=== PATIENT | male | born 1970 | race Caucasian/White ===

== ENCOUNTER 2018-07-27 00:35 | Inpatient (IN) | payer MEDICAID ==
[~2018-07-27] VITALS: Ht 182.9 cm; Wt 101.2 kg
[2018-07-27] VITALS (7 sets, daily range): BP systolic 108–166; BP diastolic 57–96; BMI 33.5
[2018-07-27] MEDS ORDERED: LOSARTAN PO (00:46)
[2018-07-27] MEDS ORDERED: FERROUS SULFATE (00:47)
[2018-07-27] MEDS ORDERED: LASIX40 MG PO (00:47)
[2018-07-27] MEDS ORDERED: LEVEMIR IN100 UNITS/ SQ (00:48)
[2018-07-27] MEDS ORDERED: COREG12.5 MG PO ×2 (00:48→00:49)
[2018-07-27] MEDS ORDERED: FLOMAX0.4 MG PO (00:48)
[2018-07-27] MEDS ORDERED: GABAPENTIN100 MG PO (00:48)
[2018-07-27] MEDS ORDERED: LISINOPRIL20 MG PO (00:49)
[2018-07-27] MEDS ORDERED: K-DUR20 MEQ PO (00:50)
[2018-07-27] MEDS ORDERED: NITROQUICK0.4 MG SL (00:50)
[2018-07-27] MEDS ORDERED: ZOFRAN ODT4 MG/UDTAB PO (00:52)
[2018-07-27] MEDS ORDERED: COREG25 MG PO (00:52)
[2018-07-27] MEDS ORDERED: CARAFATE1 G PO (00:52)
[2018-07-27] MEDS ORDERED: PHENERGAN25 M1 PO (00:53)
[2018-07-27] MEDS ORDERED: MAG-OX 400 MG400 MG PO (00:53)
[2018-07-27] MEDS ORDERED: ZITHROMAX250 MG PO (00:54)
[2018-07-27] MEDS ORDERED: ALBUTEROL SULF8.5 GM INH (00:54)
[2018-07-27] MEDS ORDERED: OMNICEF300 MG PO (00:54)
[2018-07-27] MEDS ORDERED: HYDROCODON-ACE1 EAC7 PO (00:55)
[2018-07-27] MEDS ORDERED: DECADRON4 MG PO (00:55)
[2018-07-27 01:03] LABS: HEMATOCRIT 21.7 % (42.0-54.0); MCHC 34.1 g/dL (31.0-37.0); MCV 85.1 fL (80.0-100.0); PLATELET COUNT 113 10x3/uL (130-400); RBC 2.55 10x6/uL (4.20-6.10); RDW 14.6 % (11.5-14.5); WBC 2.1 10x3/uL (4.8-10.8)
[2018-07-27 01:05] LABS: HEMOGLOBIN 7.4 g/dL (13.5-17.5)
[2018-07-27 01:22] LABS: INR 1.2 (0.85-1.17); PROTIME 14.7 SECONDS (11.6-15.0)
[2018-07-27 01:31] LABS: ALBUMIN 1.5 g/dL (3.4-5.0); ANION GAP 12.8 mmol/L (8-16); BILIRUBIN - TOTAL 0.1 mg/dL (0.2-1.3); CALCIUM 7.5 mg/dL (8.5-10.1); CARBON DIOXIDE 25.1 mmol/L (21.0-32.0); POTASSIUM - SERUM 3.9 mmol/L (3.5-5.1); PROTEIN - SERUM 5.5 g/dL (6.4-8.2)
[2018-07-27 01:35] LABS: TROPONIN-I 0.289 ng/mL (0.000-0.060)
[2018-07-27 01:40] LABS: EOSINOPHILS 2 % (0-7); LYMPHOCYTES 14 % (15-50); MONOCYTES 8 % (2-11); NEUTROPHILS 76 % (40-80); PLATELET ESTIMATE DECREASED
--- NOTE | 2018-07-27 02:49 | NUR ---
REPORT GIVEN TO ERIN MOON
--- NOTE | 2018-07-27 04:29 | NUR ---
ARRIVED TO FLOOR AT 0335 ON STRETCHER. STAFF UNABLE TO AROUSE HIM AND GET HIM TO SELF TRANSFER TO BED. THIS NURSE ABLE TO AROUSE HIM AND HE DID MOVE OVER TO THE BED. ALERT AND ORIENTED UP AD BOYD TO B/R. INFUSING PRBC AT THIS TIME. SETTING FROM ER 250ML/HR. REDUCED TO 125/CC HR. TO PREVENT FLUID OVERLOAD. IV TO RIGHT FA WITH DSG INTACT. NO REDNESS OR SWELLING TO SITE. O2@ 3 LITERS PER N/C. IV TO RIGHT INDEX FINGER SL.. LEFT ARM RESERVED D/T FISTULA NEAR WRIST. AVF HAS NO BRUIT OR TRILL. PT STATES IT NEVER HAS WORKED AND THEY PUT IT IN ABOUT 3 MOS AGO. ORIENTED X4. ABLE TO ANSWER SOME QUESTIONS. AID AQUIRED V/S'S AND WT.. WHEN THIS NURSE RETURNED TO ROOM UNABLE TO KEEP HIM AWAKE AND DOES NOT ANSWER QUESTIONS AT THIS TIME. WILL ATTEMPT TO GET HISTORY AND MEDS COMPLETED AFTER HE HAS HAD SOME REST. PHYSICAL ASSESSMENT COMPLETE. WILL CHECK FSBS D/T REPORTS OF OVER 400 AND 10 UNITS OF INSULIN GIVEN IN ER.
--- NOTE | 2018-07-27 04:59 | NUR ---
CONT TO BE LETHARGIC. FSBS 304 AT THIS TIME.
--- NOTE | 2018-07-27 07:29 | NUR ---
PT ASLEEP, DID NOT ROUSE TO MY ATTEMPTS TO WAKE, THIS IS CONSISTANT WITH HIS DOCUMENT BEHAVIOR THUS FAR. BLOOD DONE AND ISCONNECTED. V/S RECORDED. CL IN REACH, SRX2.
--- NOTE | 2018-07-27 08:50 | NUR ---
PT AWAKE AND ORIENTED WITH 0 ISSUES. NO COMPLAINTS OR CONCERNS AT THIS TIME. CL IN REACH, SRX2. REQUESTS A SHOWER AT [facility] TODAY.
[2018-07-27 10:29] LABS: ANION GAP 12.6 mmol/L (8-16); CALCIUM 7.8 mg/dL (8.5-10.1); CARBON DIOXIDE 24.3 mmol/L (21.0-32.0); POTASSIUM - SERUM 3.9 mmol/L (3.5-5.1)
[2018-07-27 12:47] LABS: BASOPHILS 0.9 % (0-2); EOSINOPHILS 0.6 % (0-7); HEMATOCRIT 24.7 % (42.0-54.0); HEMOGLOBIN 8.4 g/dL (13.5-17.5); IMMATURE GRANULOCYTES 2.7 % (0-5); MCH 28.6 pg (26.0-34.0); MEAN PLATELET VOLUME 9.6 fL (7.4-10.4); MONOCYTES 10.2 % (2-11); NEUTROPHILS 64.6 % (40-80); PLATELET COUNT 132 10x3/uL (130-400); RBC 2.94 10x6/uL (4.20-6.10); RDW 14.3 % (11.5-14.5)
[2018-07-27 12:50] LABS: WBC 3.3 10x3/uL (4.8-10.8)
--- NOTE | 2018-07-27 13:35 | NUR ---
I have reviewed this patient and I concur with the Shift Assessment completed by the Licensed Practical Nurse today this shift.
[2018-07-27 14:09] LABS: INR 1.17 (0.85-1.17); PROTIME 14.4 SECONDS (11.6-15.0)
--- NOTE | 2018-07-27 16:14 | NUR ---
PT HAS BEEN AWAKE AND ORIENTED ALL DAY. NO SIGNS/SYMPTOMS OF LETHARGY. JUST A LITTLE HARD TO WAKE UP BUT THAT IS APPARENTLY HIS BASELINE. NO COMPLAINTS OR CONCERNS OTHER THAN HE DOESN'T LIKE THE FOOD. CL IN REACH, SRX2.
--- NOTE | 2018-07-27 19:10 | NUR ---
ALERT/AWAKE ORIENTED X 4. WATCHING TV. DENIES PAIN OR ANY NEEDS. HAS CALL LIGHT IN REACH. NSG ASSESSMENTS DONE PER NSG FLOWCHART. REQUESTED DOOR LEFT OPENED.
--- NOTE | 2018-07-27 19:15 | NUR ---
ALERT/AWAKE ORIENTED X4. AMBULATING IN ROOM. DENIES PAIN OR ANY NEEDS. IV IN RT FA INTACT SL. TELEMETRY SHOWS 72 SR. L ARM FISTULA NOTED WITH A POSITIVE BRUIT/THRILL. REQUESTED DOOR CLOSED.
--- NOTE | 2018-07-27 21:10 | NUR ---
RETURNING TO BED FROM BATHROOM. STATED HE HAD A SHOWER. ADMIN SCHED MEDS AND LEVEMIR INSULIN 15 UNITS FOR BS 224. REATTACHED TELEMETRY LEADS.
--- NOTE | 2018-07-27 21:10 | NUR ---
ADMIN SCHED MED. DENIES ANY NEEDS OR DISCOMFORTS. HAS CL IN REACH.
[2018-07-28 00:02] VITALS: BP 120/56
--- NOTE | 2018-07-28 01:14 | NUR ---
ADMIN NORCO 5MG PO PER REQUEST FOR C/O BACK PAIN LEVEL 8 ON NUMBER SCALE 0-10. HE IS NPO PER DAYSHIFT NURSE INSTRUCTION, BUT CAN NOT FIND ORDER FOR IT. TOLD PATIENT IT MAY BE FOR THE CARDIOLOGY CONSULT.
--- NOTE | 2018-07-28 04:10 | NUR ---
SENIOR PHP WEB DEVELOPER LEAVING ROOM. FLUSHED IV'S. REQUESTED LIGHTS OFF AND DOOR CLOSED TO SLEEP.
[2018-07-28 04:46] LABS: ANION GAP 12.3 mmol/L (8-16); CALCIUM 7.7 mg/dL (8.5-10.1); CARBON DIOXIDE 25.5 mmol/L (21.0-32.0); CREATININE - SERUM 5.2 mg/dL (0.6-1.3); HEMATOCRIT 24.4 % (42.0-54.0); HEMOGLOBIN 8.6 g/dL (13.5-17.5); LYMPHOCYTES 33.6 % (15-50); MCH 30.1 pg (26.0-34.0); MCHC 35.2 g/dL (31.0-37.0); MCV 85.3 fL (80.0-100.0); MEAN PLATELET VOLUME 9.6 fL (7.4-10.4); NEUTROPHILS 53.4 % (40-80); PLATELET COUNT 145 10x3/uL (130-400); POTASSIUM - SERUM 3.8 mmol/L (3.5-5.1); RBC 2.86 10x6/uL (4.20-6.10); RDW 14.8 % (11.5-14.5); WBC 2.5 10x3/uL (4.8-10.8)
--- NOTE | 2018-07-28 07:20 | NUR ---
ROUNDING DONE WITH PATIENT BEING NPO UNTIL SEEN PER CARDIOLOGY. NO HEART MONITOR ON HIM. ON 2L PER NC. RIGHT FA AND RIGHT INDEX FINGER PIV SEEN WITH SALINE LOCK. LEFT AVF WITH NO BRUIT AND THRILL. ON EP, K+ IS 3.8. DENIES ANY NEEDS AT THIS TIME BUT TO SEE DOCTOR.
[2018-07-28 07:48] VITALS: BP 127/71
--- NOTE | 2018-07-28 08:21 | NUR ---
ELENA LOPEZ APN IN TO SEE PATIENT AND STATES THAT HE CAN EAT. COMPUTER IS DOWN IN ROOM AND I CALLED KEN IN IT.
--- NOTE | 2018-07-28 09:14 | NUR ---
PATIENT IS GIVEN URINAL AND INSTRCUTED IN NEEDING URINE SAMPLE
[2018-07-28] MEDS ORDERED: NOVOLOG100 UNIT/1 SC (10:23)
[2018-07-28 10:38] VITALS: BMI 33.3
--- NOTE | 2018-07-28 10:53 | NUR ---
SISTER TO CALL AND ASK QUESTIONS ABOUT PATIENT'S KIDNEY FUNCTION AND CONCERNS THAT IT IS GETTING WORSE. I READ HER DR IRVIN'S NOTES FROM TODAY. SHE STILL HAS MORE CONCERNS AND I TOLD HER THAT MAYBE SHE NEEDED TO CONTACT DR IRVIN AND ASK HIM MORE DIRECT QUESTIONS. I GAVE HER HIS OFFICE NUMBER AND SHE THANKED ME.
[2018-07-28 11:05] LABS: APPEARANCE CLEAR (CLEAR); COLOR STRAW (YELLOW); SPECIFIC GRAVITY 1.015 (1.005-1.020)
[2018-07-28 11:08] LABS: BILIRUBIN NEGATIVE (NEGATIVE); GLUCOSE 250 mg/dL (NEGATIVE); KETONE NEGATIVE (NEGATIVE); NITRITE NEGATIVE (NEGATIVE); PROTEIN 3+ mg/dL (NEGATIVE); UROBILINOGEN NORMAL (NORMAL)
[2018-07-28 11:09] LABS: BACTERIA FEW /hpf (NONE SEEN); EPITHELIAL CELLS NSEEN /hpf (0-5); RED CELLS - URINE 0-5 /hpf (0-5); WHITE CELLS - URINE 0-5 /hpf (0-5)
[2018-07-28 11:16] LABS: UDS - AMPHET NEGATIVE QUAL (NEGATIVE); UDS - BARB NEGATIVE QUAL (NEGATIVE); UDS - BENZO NEGATIVE QUAL (NEGATIVE); UDS - COCAINE NEGATIVE QUAL (NEGATIVE); UDS - OPIATE POSITIVE QUAL (NEGATIVE); UDS - PCP NEGATIVE QUAL (NEGATIVE); UDS - THC NEGATIVE QUAL (NEGATIVE)
[2018-07-28 11:20] VITALS: BP 130/76
--- NOTE | 2018-07-28 11:45 | NUR ---
URINE SENT TO LAB ORDERED.
[2018-07-28 14:41] VITALS: BP 132/79
--- NOTE | 2018-07-28 15:19 | NUR ---
RESTING, WATCHING TV. DENIES ANY NEEDS AT THIS TIME.
--- NOTE | 2018-07-28 15:55 | NUR ---
POC GLUCOSE IS 130, NO INSULIN REQUIRED WITH SLIDING SCALE.
--- NOTE | 2018-07-28 19:25 | NUR ---
SITTING ON SIDE OF BED. ALERT/ORIENTED X4. RR 20 EVEN U/L ON 02 AT 2L/NC. IV'S IN R FA AND R INDEX FINGER INTACT SL. REQUESTED SOME JELLO. BED IS LOW, CALL LIGHT IN REACH.
[2018-07-28 21:48] VITALS: BP 110/65
[2018-07-29 05:49] LABS: HEMATOCRIT 24.2 % (42.0-54.0); HEMOGLOBIN 8.2 g/dL (13.5-17.5); MCH 28.9 pg (26.0-34.0); MCHC 33.9 g/dL (31.0-37.0); MCV 85.2 fL (80.0-100.0); MEAN PLATELET VOLUME 9.9 fL (7.4-10.4); PLATELET COUNT 164 10x3/uL (130-400); RBC 2.84 10x6/uL (4.20-6.10); RDW 14.8 % (11.5-14.5); WBC 2.7 10x3/uL (4.8-10.8)
[2018-07-29 05:55] VITALS: BP 155/96
[2018-07-29 06:25] LABS: ANION GAP 12.4 mmol/L (8-16); CALCIUM 7.6 mg/dL (8.5-10.1); CARBON DIOXIDE 25.4 mmol/L (21.0-32.0); POTASSIUM - SERUM 3.8 mmol/L (3.5-5.1)
--- NOTE | 2018-07-29 07:31 | NUR ---
ROUNDING DONE WITH PATIENT BEING IN THE SHOWER AT THIS TIME. COMPLETE BED LINEN CHANGE DONE.
[2018-07-29 08:07] VITALS: BP 162/97
[2018-07-29 10:19] LABS: BASOPHILS 1 % (0-2); EOSINOPHILS 8 % (0-7); HYPOCHROMASIA OCC; LYMPHOCYTES 22 % (15-50); MONOCYTES 15 % (2-11); NEUTROPHILS 54 % (40-80); PLATELET ESTIMATE NORMAL
[2018-07-29 11:25] VITALS: BP 125/67
[2018-07-29 14:22] VITALS: Ht 182.9 cm; Wt 101.2 kg
--- NOTE | 2018-07-29 14:30 | NUR ---
ALEJANDRO (GLENROY) TO CALL AND ASK HOW PATIENT IS DOING. PER PATIENT, I AM ALLOWED TO TALK TO HER. I LET HER KNOW THAT A GENERAL SURGERON HAS BEEN CONSULTED FOR AVF PLACEMENT.
--- NOTE | 2018-07-29 14:34 | NUR ---
JIM LEONARDO APN HERE TO SEE PATIENT.
[2018-07-29 15:19] VITALS: BP 134/73
--- NOTE | 2018-07-29 16:33 | NUR ---
PATIENT HAS NOT VOIDED IN URINAL SINCE ASKING HIM TO BEFORE LUNCH. HE HAS NOT VOIDED. WILL CONTINUE TO FOLLOW.
--- NOTE | 2018-07-29 17:01 | NUR ---
1659-PERMITS SIGNED FOR SURGERY FOR TOMORROW. PATIENT IS MADE AWARE OF NPO PAST MIDNIGHT STATUS.
--- NOTE | 2018-07-29 17:45 | NUR ---
VOIDED 800 CC TO URINAL.
--- NOTE | 2018-07-29 20:11 | NUR ---
RECIEVED BEDSIDE REPORT. ROUNDS COMPLETED. VSS, AAOX3. APPEARS DROWSY. NO S/S OF RR DISTRESS. PT NPO FOR POSSIBLE ARTERIOVENOUS FISTULA OR ARTERIOVENOUS GRAFT PLACEMENT TOMORROW. CONSENT SIGNED. PUDDING PROVIDED PER PT REQUEST. DENIES ANY FURHTER NEEDS AT THIS TIME. WILL CPOC.
[2018-07-29 20:45] VITALS: BP 138/83
[2018-07-29 23:37] VITALS: BP 153/96
--- NOTE | 2018-07-30 03:59 | NUR ---
PT C/O BACK PAIN. PRN NORCO GIVEN AT THIS TIME. PT CURRENTLY RESTING IN BED. WILL CTM.
[2018-07-30 06:16] VITALS: BP 147/84
[2018-07-30 07:04] LABS: BASOPHILS 0.3 % (0-2); EOSINOPHILS 4.2 % (0-7); HEMATOCRIT 24.5 % (42.0-54.0); HEMOGLOBIN 8.1 g/dL (13.5-17.5); IMMATURE GRANULOCYTES 0.3 % (0-5); LYMPHOCYTES 37.1 % (15-50); MCH 28.3 pg (26.0-34.0); MCHC 33.1 g/dL (31.0-37.0); MCV 85.7 fL (80.0-100.0); MEAN PLATELET VOLUME 9.6 fL (7.4-10.4); MONOCYTES 7.3 % (2-11); NEUTROPHILS 50.8 % (40-80); PLATELET COUNT 180 10x3/uL (130-400); RBC 2.86 10x6/uL (4.20-6.10); RDW 14.6 % (11.5-14.5); WBC 2.9 10x3/uL (4.8-10.8)
--- NOTE | 2018-07-30 07:10 | NUR ---
REPORT RECEIVED FROM SOA ENGINEER AND PATIENT CARE ASSUMED. PATIENT IS AWAkE, ALERT AND ORIENTED X 4. PATIENT IS NPO AWAITING SURGERY FOR FISTULA PROCEDURE. VSS.PATIENT DENIES ANY NEEDS OR PAIN. WILL CONTINUE TO MONITOR. SR UP X2 BED IN LOW POSTION AND CALL LIGHT IN REACH.
[2018-07-30 07:21] LABS: ANION GAP 11.4 mmol/L (8-16); CALCIUM 7.8 mg/dL (8.5-10.1); CARBON DIOXIDE 27.2 mmol/L (21.0-32.0); CREATININE - SERUM 5.1 mg/dL (0.6-1.3); POTASSIUM - SERUM 3.6 mmol/L (3.5-5.1)
[2018-07-30 08:24] VITALS: BP 172/96
[2018-07-30 11:36] VITALS: BP 162/90
[2018-07-30 15:23] VITALS: BP 150/84
--- NOTE | 2018-07-30 15:47 | NUR ---
PATIENT LAYING IN BED ON BACK WITH EYES CLOSED AND BREATHING EVENLY. PATIENT CONTINUES TO BE NPO AWAITNG SURGERY.
--- NOTE | 2018-07-30 17:30 | NUR ---
SURGERY CANCELLED AND RESHCED FOR 08/01/18. PATIENT HAD SUPPER AND AND SHOWER. PATIENT IS STABLE AND DENIES ANY NEEDS OR PAIN. WILL CONTINUE TO MONITOR.
[2018-07-30 20:00] VITALS: BP 165/85
--- NOTE | 2018-07-30 20:00 | NUR ---
RECIEVED BEDSIDE REPORT. PT AAOX3, BUT APPEARS LETHARGIC, PT VOICED CONCERN ABOUT NOT GETTING PROCEDURE DONE TODAY. RR EVEN AND UNLABORED, RESTART BUMEX. PROVIDED JELLO AND WATER VA PT REQUEST. PT CURRENLTY RESTING IN BED WITH EYES CLOSED. WILL CPOC. CL IN REACH.
--- NOTE | 2018-07-30 21:52 | NUR ---
PT C/O BACK PAIN. PO PRN NORCO GIVEN AT THIS TIME. WILL CTM. CL IN REACH.
[2018-07-31] VITALS: BP 159/90
--- NOTE | 2018-07-31 01:49 | NUR ---
PT CURRENTLY UP AND AND SITTING ON EDGE OF BE. STATES PAIN IS BETTER. JELLO PROVIDED TO PT PER PT REQUEST. WILL CPOC.
[2018-07-31 04:00] VITALS: BP 165/89
[2018-07-31 05:51] LABS: BASOPHILS 0.3 % (0-2); EOSINOPHILS 4.5 % (0-7); HEMATOCRIT 25.4 % (42.0-54.0); HEMOGLOBIN 8.4 g/dL (13.5-17.5); IMMATURE GRANULOCYTES 0.7 % (0-5); LYMPHOCYTES 28.7 % (15-50); MCH 28.2 pg (26.0-34.0); MCHC 33.1 g/dL (31.0-37.0); MCV 85.2 fL (80.0-100.0); MEAN PLATELET VOLUME 9.4 fL (7.4-10.4); MONOCYTES 7.6 % (2-11); NEUTROPHILS 58.2 % (40-80); PLATELET COUNT 192 10x3/uL (130-400); RBC 2.98 10x6/uL (4.20-6.10); RDW 14.4 % (11.5-14.5); WBC 2.9 10x3/uL (4.8-10.8)
[2018-07-31 06:17] LABS: ANION GAP 14.4 mmol/L (8-16); CALCIUM 7.3 mg/dL (8.5-10.1); CARBON DIOXIDE 26.5 mmol/L (21.0-32.0); CREATININE - SERUM 4.9 mg/dL (0.6-1.3); PHOSPHOROUS 6.7 mg/dL (2.5-4.9); POTASSIUM - SERUM 3.9 mmol/L (3.5-5.1)
--- NOTE | 2018-07-31 07:10 | NUR ---
REPORT RECEIVED FROM AUTOMOTIVE REPAIR TECHNICIAN AND PATIENT CARE ASSUMED. PATIENT LAYING IN BED ON LT SIDE WITH EYES CLOSED AND BREATHING EVENLY. VSS. WILL CONTINUE WITH PLAN OF CARE. SR UP X 2 BED IN LOW POSTION AND CALL LIGHT IN REACH.
[2018-07-31 08:00] VITALS: BP 172/90
--- NOTE | 2018-07-31 11:30 | NUR ---
ORDER RECIEVED FOR 24 HOUR URINE. LAB PROVIDED CONTAINER. WRITTEN INSTRUCTIONS TAPED ON BATHROOM DOOR. CONTAINER PLACED IN ICE BAG. PATIENT PROVIDED URINAL AND DETAILED INSTRUCTIONS GIVEN. PATIENT VERBALIZED UNDERSTANDING.
[2018-07-31 11:40] LABS: % SATURATION 20 % (15-55); IRON 27 ug/dl (35-150); TOTAL IRON BIND CAPACITY 132 ug/dl (260-445); UNSAT IRON BIND CAPACITY 105 ug/dl (150-375)
[2018-07-31 12:11] VITALS: BP 148/76
--- NOTE | 2018-07-31 14:49 | NUR ---
PATIENT STABLE AND UNCHANGED.
[2018-07-31 16:00] VITALS: BP 157/84
--- NOTE | 2018-07-31 17:42 | NUR ---
PATIENT LAYING IN BED WITH EYES CLOSED AND BREATHING EVENLY. OPATIENT AROUSES TO VOICE EASILY. QUESTIONED PATIENT ABOUT URINE SPECIMEN AND PATIENT STATED THAT HAS NOT URINATED YET. REINTERATED INSTRUCTIONS TO PATIENT AND BE SURE AND LET NURSE KNOW WHEN HE DOES. WILL CONTINUE TO MONITOR. SR UP X 2 BED IN LOW POSITION AND CALL LIGHT IN REACH.
[2018-07-31 17:53] LABS: HEMATOCRIT 26.1 % (42.0-54.0); HEMOGLOBIN 8.7 g/dL (13.5-17.5)
[2018-07-31 18:04] LABS: ALBUMIN 1.8 g/dL (3.4-5.0); ANION GAP 13.5 mmol/L (8-16); BILIRUBIN - TOTAL 0.26 mg/dL (0.2-1.3); CALCIUM 8.2 mg/dL (8.5-10.1); CARBON DIOXIDE 25.8 mmol/L (21.0-32.0); CREATININE - SERUM 4.6 mg/dL (0.6-1.3); PROTEIN - SERUM 6.1 g/dL (6.4-8.2)
[2018-07-31 18:06] LABS: POTASSIUM - SERUM 3.3 mmol/L (3.5-5.1)
--- NOTE | 2018-07-31 19:51 | NUR ---
RESUMING PT CARE. PT IS ALERT LAYING IN BED. NO C/O VOICED. RESPIRATIONS ARE EVEN AND UNLABORED. NO S/S OF DISTRESS NOTED. BED IN LOW POSITION WITH CALL LIGHT IN REACH. WILL CONTINUE TO MONITOR PT AND FOLLOW PLAN OF CARE.
[2018-08-01] VITALS: BP 167/95
[2018-08-01 04:00] VITALS: BP 163/88
--- NOTE | 2018-08-01 06:39 | NUR ---
A 24 HOUR URINE WAS NOT STARTED DUE TO PT STATING HE HAS NOT HAD TO URINATE.
--- NOTE | 2018-08-01 07:15 | NUR ---
REPORT RECIEVED FROM LEAD SUPPLY WORKER AND PATIENT CARE ASSUMED. PATIENT LAYING ON LT SIDE WITH EYES CLOSED AND BREATHING EVENLY. VSS AND PATIENT IS STABLE. PATIENT IS NPO AWAITING SURGERY. WHEN QUESTIONED ABOUT URINE SPECIMEN PATIENT STATED THAT HE HAD URINATED IN THE DOLL MAKER HOURS AND POURED URINE FROM URINAL INTO 24 HOUR URINE CONTAINER. PLACED FRESH ICE INTO HOLDING BUCKET. WILL CONTINUE WITH PLAN OF CARE.
[2018-08-01 08:22] VITALS: BP 189/101
[2018-08-01 09:13] LABS: FOLATE (FOLIC ACID) - SERUM 10.3 ng/mL (>3.0)
--- NOTE | 2018-08-01 10:11 | NUR ---
RECIEVED PHONE CALL FROM SURGERY TEAM TO PRE OP PATIENT. PATIENT PREOP PER EMAR. PATIENT IS STABLE. VSS. WILL CONTINUE TO MONITOR.
[2018-08-01 12:12] VITALS: BP 182/108
--- NOTE | 2018-08-01 12:30 | NUR ---
PATIENT IS STABLE AND VSS. PATIENT TO SURGERY VIA HOSPITAL BED AND HOSPITAL PERSONNEL.
--- NOTE | 2018-08-01 16:00 | NUR ---
DURING STAY IN PACU PATIENT HAS BECOME UNCOOPERATIVE AND VOLATILE. REFUSED POST-OP BLOOD SUGAR. ALSO STATING "DONT TOUCH ME OR I WILL KNOCK THE FUCK OUT OF YOU, I'M NOT THE ONE" TO OTHER STAFF MEMBERS.
[2018-08-01 20:00] VITALS: BP 171/85
[2018-08-02] VITALS (7 sets, daily range): BP systolic 172–203; BP diastolic 81–117
[2018-08-02 04:59] LABS: BASOPHILS 0.2 % (0-2); EOSINOPHILS 4.1 % (0-7); HEMATOCRIT 25.4 % (42.0-54.0); HEMOGLOBIN 8.5 g/dL (13.5-17.5); IMMATURE GRANULOCYTES 0.2 % (0-5); LYMPHOCYTES 18.5 % (15-50); MCH 28.4 pg (26.0-34.0); MCHC 33.5 g/dL (31.0-37.0); MCV 84.9 fL (80.0-100.0); MEAN PLATELET VOLUME 9.1 fL (7.4-10.4); MONOCYTES 7.5 % (2-11); NEUTROPHILS 69.5 % (40-80); PLATELET COUNT 220 10x3/uL (130-400); RBC 2.99 10x6/uL (4.20-6.10); RDW 14.4 % (11.5-14.5)
[2018-08-02 05:00] LABS: WBC 4.4 10x3/uL (4.8-10.8)
[2018-08-02 05:11] LABS: ANION GAP 11.4 mmol/L (8-16); CALCIUM 8.2 mg/dL (8.5-10.1); CARBON DIOXIDE 27.8 mmol/L (21.0-32.0); CREATININE - SERUM 4.3 mg/dL (0.6-1.3); POTASSIUM - SERUM 3.2 mmol/L (3.5-5.1)
[2018-08-02 08:06] LABS: CREATININE - URINE 35.8 mg/dL (30-125)
[2018-08-02 08:20] LABS: PROTEIN - URINE 311.4 mg/dL (0.0-11.9)
--- NOTE | 2018-08-02 10:09 | NUR ---
PATIENT IS SITTING UP AT THE SIDE OF THE BED. WHEN GETTING REPORT FROM MANAGER INTRANET, WE CHECKED HIS BLOOD PRESSURE AND SAW THAT IT HAS BEEN HI. WE HAVE TREATED HIS BLOOD PRESSURE WITH A NEW ORDER OF BLOOD PRESSURE MEDICATION AND TREATED HIS PAIN WITH MEDICATION ORDERED. THERE IS NO BRUIT AND THRILL IN THE NEW FISTULA IN HIS LEFT ARM AND A SCANT AMOUNT OF DRIED BLOOD UNDER THE CLEAR DRESSING OVER THE INCISION SITE. THE ARM IS TIGHT AND EDEMITOUS. REPORTED TO ERROL, THE POLE SANDER OPERATOR NEON PUMPER FOR RENAL THAT HE IS IN PAIN AND SHE ADJUSTED HIS MEDICATIONS AGAIN. CONTINUEING TO MONITOR CLOSELY. DR ROYAL IS AWARE THAT THERE IS NO BRUIT AND THRILL IN THE FISTULA.
--- NOTE | 2018-08-02 10:16 | NUR ---
SOMETIMES THE BRUIT AND THRILL TAKES A LITTLE WHILE TO START. SURGERY WILL INFORM PATIENT ON DETAILS WE CONTINUE TO MONITOR CLOSELY.
--- NOTE | 2018-08-02 10:19 | NUR ---
WHEN CHECKING FOR HIS BRUIT AND THRILL PATIENT STATES," THERE IS NO PULSE. " I SAID," WE ARE CONTINUING TO MONITOR CLOSELY."
--- NOTE | 2018-08-02 14:26 | NUR ---
I have reviewed this patient and I concur with the Shift Assessment completed by the Licensed Practical Nurse today this shift.
--- NOTE | 2018-08-02 17:52 | NUR ---
PATIENT B/P WAS 203/117 AT 15:00. CALLED SOIL ANALYST SOLUTIONS DEVELOPMENT ANALYST AGAIN. ORDERED NEW MEDICATION, AND ADMINISTERED FOR B/P
--- NOTE | 2018-08-02 19:21 | NUR ---
EVENING ROUND MADE. PT LAYING IN BED. STATES PAIN IN L ARM. INFORMED PT THAT I WOULD BRING PAIN MED WHEN AVAILABLE TIME. PT SLOW TO RESPOND. IV TO R FA WITH BUMEX @ 5 CC/HR. PATENT, NO REDNESS OR EDEMA NOTED. DRSG C/D/I. RM AIR. BLE EDEMA 2+ PITTING. AV FISTULA TO L ARM. DRSG C/D/I. LUNGS CLEAR. HEART RRR. NO FURTHER CONCERNS AT THIS TIME. SAFETY PRECAUTIONS IN PLACE. SR UP X 3. CL IN REACH. BED LOWERED AND LOCKED. WILL CTM.
--- NOTE | 2018-08-02 19:31 | NUR ---
NIECE ALEJANDRO CALLED. PT GAVE PREMISSION TO GIVE NIECE INFORMATION ABOUT CARE.
--- NOTE | 2018-08-02 21:24 | NUR ---
PT TOOK MEDICATIONS WITHOUT DIFFICULTY. K+ 3.2, 40 MEQ GIVEN PER ELECTROLYTE PROTOCOL. PT SAT UP ON SIDE OF BED. PT DROWSY AT THIS TIME. PT BP ELEVATED NO PRN MEDS AT THIS TIME. WILL NOTIFY RENAL ROCK BREAKER. NO FURTHER CONCERNS AT THIS TIME. WILL CTM.
[2018-08-03] VITALS (7 sets, daily range): BP systolic 145–185; BP diastolic 75–105
--- NOTE | 2018-08-03 02:59 | NUR ---
I have reviewed this patient and I concur with the Shift Assessment completed by the Licensed Practical Nurse today this shift.
--- NOTE | 2018-08-03 04:29 | NUR ---
PT RESTING COMFORTABLY AT THIS TIME. BREATHING EVEN AND UNLABORED. BUMEX @ 5 CC, NS @ 10 CC TO IV IN R FA. PATENT, NO REDNESS, NO EDEMA NOTED. DRSG C/D/I. SAFETY PRECATIONS IN PLACE. CL IN REACH. BED LOWERED AND LOCKED. WILL CTM.
[2018-08-03 05:03] LABS: BASOPHILS 0.3 % (0-2); EOSINOPHILS 5.6 % (0-7); HEMATOCRIT 24.6 % (42.0-54.0); HEMOGLOBIN 8.3 g/dL (13.5-17.5); IMMATURE GRANULOCYTES 0.6 % (0-5); MCH 28.7 pg (26.0-34.0); MCHC 33.7 g/dL (31.0-37.0); MCV 85.1 fL (80.0-100.0); MEAN PLATELET VOLUME 8.9 fL (7.4-10.4); MONOCYTES 8.8 % (2-11); NEUTROPHILS 58.7 % (40-80); PLATELET COUNT 200 10x3/uL (130-400); RBC 2.89 10x6/uL (4.20-6.10); RDW 14.4 % (11.5-14.5); WBC 3.4 10x3/uL (4.8-10.8)
[2018-08-03 05:12] LABS: ANION GAP 10.2 mmol/L (8-16); CALCIUM 8.1 mg/dL (8.5-10.1); CARBON DIOXIDE 30.3 mmol/L (21.0-32.0); CREATININE - SERUM 4.2 mg/dL (0.6-1.3); POTASSIUM - SERUM 3.5 mmol/L (3.5-5.1)
--- NOTE | 2018-08-03 07:56 | NUR ---
AAOX4. SLOW TO RESPOND. STATES "BLIND" BUT ABLE TO GRAB ITEMS FROM TRAY WITHOUT PROMPTING OR DIRECTION. ON ROOM AIR, IV TO RIGHT FOREARM, NS AT 10ML/HR, DRESSING TO LEFT UPPER ARM, SCANT BLOODY DRAINAGE, NO BRUIT, NO THRILL, WEAK PULSE OF RADIAL, DENIES ANY CURRENT NEEDS OR DISCOMFORTS, BED LOWERED AND LOCKED, CALL LIGHT WITHIN REACH. CPOC
--- NOTE | 2018-08-03 10:34 | NUR ---
DISCONTINUED IV FLUIDS AND BUMEX PER ORDER.
--- NOTE | 2018-08-03 14:25 | NUR ---
I have reviewed this patient and I concur with the Shift Assessment completed by the Licensed Practical Nurse today this shift.
--- NOTE | 2018-08-03 15:15 | NUR ---
AAOX4 ON ROOM AIR, CONTINUES TO COMPLAIN ABOUT PAIN IN RIGHT ARM, NO INCREASE IN DRAINAGE OR SWELLING TO ARM, SENSITIVE TO TOUCH, INSTRUCTED HIM TO ELEVATED ARM ON PILLOW FOR COMFORT, PROVIDED ORAL PHARMALOGICAL PAIN RELIEF WELL. IV TO RIGHT FOREARM, PATENT, SALINE LOCKED, DRESSING ADHERED TO SKIN, BED LOWERED AND LOCKED, CALL LIGHT WITHIN REACH. CPOC
--- NOTE | 2018-08-03 21:10 | NUR ---
ROUNDS COMPLETED. VSS, AA0X3. NO S/S OF RR DISTRESS. BUMEX DC'D. DRESSING TO LEFT AC C/D/I WITH LITTLE TRACE OF BLOOD. PT C/O PAIN IN HIS LFA. PRN 1TAB NORCO GIVEN. PT DENIES ANY FURTHER NEEDS AT THIS TIME. WILL CPOC. CL IN REACH, BED IN LOW, SR UP X2.
[2018-08-04 03:25] VITALS: BP 160/92
[2018-08-04 04:42] LABS: ANION GAP 9.4 mmol/L (8-16); CALCIUM 8.2 mg/dL (8.5-10.1); CARBON DIOXIDE 29.6 mmol/L (21.0-32.0); CREATININE - SERUM 4.1 mg/dL (0.6-1.3)
[2018-08-04 04:46] LABS: BASOPHILS 0.3 % (0-2); EOSINOPHILS 4.9 % (0-7); HEMATOCRIT 24.9 % (42.0-54.0); HEMOGLOBIN 8.5 g/dL (13.5-17.5); IMMATURE GRANULOCYTES 0.8 % (0-5); LYMPHOCYTES 31.3 % (15-50); MCH 29.1 pg (26.0-34.0); MCHC 34.1 g/dL (31.0-37.0); MCV 85.3 fL (80.0-100.0); MEAN PLATELET VOLUME 8.9 fL (7.4-10.4); MONOCYTES 8.2 % (2-11); NEUTROPHILS 54.5 % (40-80); PLATELET COUNT 223 10x3/uL (130-400); RBC 2.92 10x6/uL (4.20-6.10); RDW 14.5 % (11.5-14.5); WBC 3.7 10x3/uL (4.8-10.8)
--- NOTE | 2018-08-04 07:45 | NUR ---
AM ROUNDS COMPLETED. INTRODUCED MYSELF TO PT PRIMARY RN FOR TODAYS SHIFT. PT IS A&O SITTING UP ON EDGE OF BED. PT INQUIRING ABOUT DISCHARGING TODAY. NO CURRENT ORDERS NOTED BUT WILL LOOK OUT FOR THEM. SHIFT ASSESSMENT COMPLETED. PTS BILAT FEET ARE SWOLLEN +2 PITTING EDEMA, PT STATES THEY ARE MUCH BETTER APPARENTLY SLOWING GETTING BETTER. ENCOURAGED PT TO KEEP THEM ELEVATED WHEN HE IS IN BED OR SITTING UP IN A CHAIR. PT VERBALIZED UNDERSTANDING. PT HAS A PIV TO HIS R.WRIST DRSG IS SOILED, CLEANED UP PERIPHERAL SITE AND REPLACED A NEW TEGADERM, SITE FLUSHES WITH GOOD BLOOD RETURN. PT C/O PAIN REQUESTING PRN NORCO, WILL CHECK TO SEE IF HE CAN HAVE IT YET R/T LEFT ARM PAIN. PT HAS NEW FISTULA WITH DRSG CDI NO S/S OF INFECTION OR BLEEDING, LEFT ARM SLIGHTLY SWOLLEN, ENCOURAGED PT TO KEEP ELEVATED WELL. PT VOICED THANKS AND IS WAITING ON BREAKFAST, CL IN REACH, BED IN LOWEST, SIDE RAILS X2. WILL CTM.
[2018-08-04 09:00] VITALS: BP 155/79
[2018-08-04] MEDS ORDERED: NORVASC10 MG PO (10:05)
--- NOTE | 2018-08-04 10:40 | NUR ---
PT VERIFIED HE DOES NOT TAKE DECADRON AT HOME. D/C FROM HOME MEDICATION LIST. PT IS GOING TO BE DISCHARGED TODAY AND HAPPY TO HEAR THIS. WILL CALL FOR HIS TRANSPORTATION AND HE IS GETTING INTO THE SHOWER. NO CURRENT NEEDS.
--- NOTE | 2018-08-04 11:15 | NUR ---
TALKED TO PTS GODWIN AND SHE STATES SHE WILL SEND SOMEONE TO COME AND GET HIM HOWEVER THEY ARE IN [place] SO IT WILL TAKE A FEW HOURS. EXPLAINED TO PT AND HE VOICED THANKS. NO CURRENT NEEDS AT THIS TIME. CL IN REACH, BED IN LOWEST, SIDE RAILS X2. WILL CTM.
[2018-08-04 12:25] VITALS: BP 158/89
--- NOTE | 2018-08-04 12:33 | NUR ---
FSBS 155 PT DENIED WANTING ANY COVERAGE AND STATES HE ONLY TAKES IF ABOVE 200. PT SITTING UP IN BED RESTING QUIETLY. PT IS GOING TO BE DISCHARGED AND HAPPY ABOUT IT JUST WAITING ON HIS TRANSPORTATION. D/C PTS R.FA PIV WITH CATHETER TIP FULLY INTACT. PT DENIES ANY CURRENT NEEDS AT THIS TIME. CL IN REACH. WILL CTM.
--- NOTE | 2018-08-04 15:31 | MORECARE ---
CASE MANAGEMENT DISCHARGE SUMMARY PATIENT: FERDINAND RODRIGUEZ UNIT: [id number] ADM DATE: 07/27/18 AGE: 48 : 74 SEX: M ROOM/BED: D.2103 AUTHOR: MENDEZ ROSADO PHYSICIAN: REFERRING PHYSICIAN: DAISY PRESTON DO DATE OF SERVICE: 08/04/18 Discharge Plan Patient Name: FERDINAND RODRIGUEZ Facility: [facility]:[place] : 1970 Planned Disposition: Home Anticipated Discharge Date: 08/04/18 Discharge Date: Expected LOS: 8 Initial Reviewer: [email or web address] Initial Review Date: 08/04/2018 Generated: 08/04/18 4:31 pm DCPIA - Discharge Planning Initial Assessment Updated by [email or web address]: Jose Fry on 08/04/18 3:29 pm * Is the patient Alert and Oriented? Yes * How many steps to enter\exit or inside your home? * PCP DR. GARSIA IN [place] * [facility]acy [facility] IN [place] * Preadmission Environment Home with Family * ADLs Partial Dependent * Partial ADLs (Assistance needed) Medication Management * Equipment Walker * Other Equipment NO MEDICAL EQUIPMENT PROVIDER PREFERENCE. * List name and contact numbers for known caregivers / representatives who currently or will assist patient after discharge: BORIS SALDAÑA, * Verbal permission to speak to the caregivers and representatives has been obtained from the patient. N/A * Community resources currently utilized None * Please name any agencies selected above. NONE * Additional services required to return to the preadmission environment? No * Can the patient safely return to the preadmission environment? Yes * Has this patient been hospitalized within the prior 30 days at any hospital? No Patient Name: FERDINAND RODRIGUEZ Page [phone] at 1531 All edits/amendments must be made on the electronic document DICTATION DATE: 08/04/181529 COLLAR POINTER: SALO 08/04/181529 RPT#: [id number] DC DATE: STATUS: ADM IN [facility] [address] [place] [address] END OF REPORT
--- NOTE | 2018-08-04 15:40 | MORECARE ---
CASE MANAGEMENT DISCHARGE SUMMARY PATIENT: FERDINAND RODRIGUEZ UNIT: [id number] ADM DATE: 07/27/18 AGE: 48 : 74 SEX: M ROOM/BED: D.2103 AUTHOR: ASHLEE,DOC PHYSICIAN: REFERRING PHYSICIAN: DAISY PRESTON DO DATE OF SERVICE: 08/04/18 Discharge Plan Patient Name: FERDINAND RODRIGUEZ Facility: [facility]:[place] : 1970 Planned Disposition: Home Anticipated Discharge Date: 08/04/18 Discharge Date: Expected LOS: 8 Initial Reviewer: [email or web address] Initial Review Date: 08/04/2018 Generated: 08/04/18 4:40 pm Comments DCP- Discharge Planning Updated by [email or web address]: Jose Fry on 08/04/18 2:[address] Patient Name: FERDINAND RODRIGUEZ Admission Status: ER Accout number: [id number] Admission Date: 07-27-2018 : 1970 Admission Diagnosis:PNEUMONIA, UNSPECIFIED ORGANISM Attending: DAISY PRESTON Current LOS: 8 Anticipated DC Date: 08-04-2018 Planned Disposition: Home Primary Insurance: MEDICAID [place] Discharge Planning Comments: CM MET WITH PT IN ROOM TO DISCUSS DISCHARGE PLANNING AND NEEDS. PT REPORTS LIVING AT HOME DEPENDENT FOR MEDICATION MANAGEMENT WITH HIS NIECE WHO DOES HIS MEDICATIONS. PT HAS A WALKER AT HOME WITH NO MEDICAL EQUIPMENT PROVIDER PREFERENCE. PT HAS NO OUTSIDE SERVICES ASSISTING IN THE HOME. CM DISCUSSED AVAILABILITY OF HOME HEALTH, REHAB SERVICES AND MEDICAL EQUIPMENT. PT DENIES DISCHARGE NEEDS, REPORTS HIS NIECE WILL PICK HIM UP FOR DISCHARGE HOME. STEAM TUNNEL FEEDER NURSE NOTIFIED. Spudder: Jose Fry DCPIA - Discharge Planning Initial Assessment Updated by [email or web address]: Jose Fry on 08/04/18 3:29 pm * Is the patient Alert and Oriented? Yes * How many steps to enter\exit or inside your home? * PCP DR. GARSIA IN [place] * Pharmacy [facility] IN [place] * Preadmission Environment Home with Family * ADLs Partial Dependent * Partial ADLs (Assistance needed) Medication Management * Equipment Walker * Other Equipment NO MEDICAL EQUIPMENT PROVIDER PREFERENCE. * List name and contact numbers for known caregivers / representatives who currently or will assist patient after discharge: BORIS SALDAÑA, * Verbal permission to speak to the caregivers and representatives has been obtained from the patient. N/A * Community resources currently utilized None * Please name any agencies selected above. NONE * Additional services required to return to the preadmission environment? No * Can the patient safely return to the preadmission environment? Yes * Has this patient been hospitalized within the prior 30 days at any hospital? No Last DP export: 08/04/18 2:31 p Patient Name: FERDINAND RODRIGUEZ Page [phone] at 1540 All edits/amendments must be made on the electronic document DICTATION DATE: 08/04/18 1540 SAMPLE STEAMER: SALO 08/04/18 1540 RPT#: [id number] DC DATE: STATUS: ADM IN [facility] [address] [place] [address] END OF REPORT
--- NOTE | 2018-08-04 16:44 | NUR ---
PT STILL WAITING ON FAMILY FOR TRANSPORTATION AND GETTING UPSET STATING THEY SHOULDNT TAKE THAT LONG, REQUESTING I CALL THEM. WILL TRY TO GET [employer] OF THEM NOW. PROVIDED PT WITH PRN NORCO FOR PAIN AND FRESH CRANBERRY JUICE REQUESTED.
--- NOTE | 2018-08-04 17:38 | NUR ---
DISCHARGE TEACHING PROVIDED AND PAPERS SIGNED. PT DENIES ANY QUESTIONS OR CONCERNS. FAMILY HERE FOR TRANSPORTATION. ALL BELONGINGS COLLECTED. PT NOW LEAVING. NO FURTHER NEEDS.
== END 2018-08-04 17:38 | disposition home or self-care (01) | DRG 252 ==
LOC: D.ER 00:35 → D.M2 02:08 → D.EDHOLD 02:08 → D.M2 02:10
PROVIDERS: Family Medicine; Internal Medicine Nephrology; Surgery; ADMIT Family Medicine; ATTEND Family Medicine
PROC: 03180KF Bypass Left Brachial Artery to Lower Arm Vein with Nonautologous Tissue Substitute, Open Approach (ICD-10-PCS; 2018-08-01)
PROC: 057F3ZZ Dilation of Left Cephalic Vein, Percutaneous Approach (ICD-10-PCS; principal; 2018-08-01 11:15)
DX: I13.0 Hypertensive heart and chronic kidney disease with heart failure and stage 1 through stage 4 chronic kidney disease, or unspecified chronic kidney disease (principal); J18.9 Pneumonia, unspecified organism; I50.23 Acute on chronic systolic (congestive) heart failure; N17.9 Acute kidney failure, unspecified; N18.4 Chronic kidney disease, stage 4 (severe); I24.8 Other forms of acute ischemic heart disease; D61.818 Other pancytopenia; I42.9 Cardiomyopathy, unspecified; D64.9 Anemia, unspecified; I25.10 Atherosclerotic heart disease of native coronary artery without angina pectoris; E11.22 Type 2 diabetes mellitus with diabetic chronic kidney disease; I08.1 Rheumatic disorders of both mitral and tricuspid valves